=== PATIENT | female | born 1950 | race Caucasian/White ===

== ENCOUNTER 2017-08-26 12:52 | Emergency (ER) | payer MEDICARE, OTHER ==
[2017-08-26 13:04] VITALS: BP 129/74
--- NOTE | 2017-08-26 13:10 | EDM.PDOC ---
ED HPI GENERAL MEDICAL PROBLEM - General Chief Complaint: Genitourinary Problem Stated Complaint: bladder infection Time Seen by Provider: 08/26/17 12:55 Source of Information: Reports: Patient History Limitations: Reports: No Limitations - History of Present Illness INITIAL COMMENTS - FREE TEXT/NARRATIVE: This patient is a 66 year old female that presents to the ER. Patient reports that since Sunday having burning with urination. Patient reports having lower bilateral back pain. Patient reports having nausea. She believes she has a UTI, as she reports she has had them before. Patient denies ricci, dizziness, v, d, f, cp, soa, abd pain, bowel changes, rash. Patient alert and oriented. I have ordered labs and urine. Onset Date: 08/24/17 Duration: Day(s): (2) Location: Reports: Back Quality: Reports: Ache Severity: Mild Improves with: Reports: None Worsens with: Reports: None Associated Symptoms: Reports: Nausea/Vomiting. Denies: Confusion, Chest Pain, Cough, cough w sputum, Diaphoresis, Fever/Chills, Headaches, Loss of Appetite, Malaise, Rash, Seizure, Shortness of Breath, Syncope, Weakness Pelvic Pain Score (Numeric/FACES): 6 - Related Data Allergies Allergy/AdvReac Type Severity Reaction Status Date / Time Penicillins Allergy Rash Verified 08/26/17 13:04 Home Meds: Home Meds Amitriptyline [Elavil] 50 mg PO BEDTIME 10/17/14 [History] Aspirin [Low Dose Aspirin EC] 81 mg PO DAILY 10/17/14 [History] Citalopram [Celexa] 40 mg PO DAILY 10/17/14 [History] Cholecalciferol (Vitamin D3) [Vitamin D3] 1,000 unit PO DAILY 03/24/16 [History] Multivitamin [Multivitamins] 1 tab PO DAILY 03/24/16 [History] Omeprazole 20 mg PO DAILY 03/24/16 [History] metFORMIN [Glucophage XR] 1,000 tab PO DAILY 03/24/16 [History] Simvastatin [Zocor] 20 mg PO BEDTIME 03/30/16 [History] Past Medical History HEENT History: Reports: None Cardiovascular History: Reports: High Cholesterol, Hypertension Respiratory History: Reports: None Gastrointestinal History: Reports: Diverticulosis, GERD, Hiatal Hernia, Other ( See Below) Other Gastrointestinal History: LACTOSE INTOLERANCE Genitourinary History: Reports: Renal Calculus, UTI, Recurrent MAGNETIZER History: Reports: None Musculoskeletal History: Reports: Arthritis, Osteoarthritis, Other (See Below) Other Musculoskeletal History: degenerative joint disease Neurological History: Reports: None Psychiatric History: Reports: Depression, Panic Attack Endocrine/Metabolic History: Reports: Diabetes, Type II Hematologic History: Reports: None Immunologic History: Reports: None Other Oncologic History: melanoma Dermatologic History: Reports: None - Infectious Disease History Infectious Disease History: Reports: Chicken Pox, Measles, Mumps, TB - Past Surgical History Musculoskeletal Surgical History: Reports: Knee Replacement Social & Family History - Family History Family Medical History: Noncontributory HEENT: Reports: None Cardiac: Reports: Other (See Below) Other Cardiac Family History: unknown type of heart disease Respiratory: Reports: None GI: Reports: None : Reports: Dialysis OBGYN: Reports: Other (See Below) Other OBGYN Family History: difficulty with delivery Musculoskeletal: Reports: Arthritis Neurological: Reports: CVA Psychiatric: Reports: None Endocrine/Metabolic: Reports: Diabetes, Type I Hematologic: Reports: None Immunologic: Reports: None Dermatologic: Reports: None Oncologic: Reports: Colon - Tobacco Use Smoking Status *Q: Current Every Day Smoker Years of Tobacco use: 30 Packs/Tins Daily: 0.5 Second Hand Smoke Exposure: Yes - Caffeine Use Caffeine Use: Reports: Coffee - Recreational Drug Use Recreational Drug Use: No ED ROS GENERAL - Review of Systems Review Of Systems: See Below Constitutional: Reports: No Symptoms HEENT: Reports: No Symptoms Respiratory: Reports: No Symptoms Cardiovascular: Reports: No Symptoms Endocrine: Reports: No Symptoms GI/Abdominal: Reports: Nausea. Denies: Abdominal Pain, Vomiting : Reports: Dysuria, Flank Pain Musculoskeletal: Reports: No Symptoms Skin: Reports: No Symptoms Neurological: Reports: No Symptoms Psychiatric: Reports: No Symptoms Hematologic/Lymphatic: Reports: No Symptoms Immunologic: Reports: No Symptoms ED EXAM, GI/ABD - Physical Exam Exam: See Below Exam Limited By: No Limitations General Appearance: Alert, WD/WN, No Apparent Distress Eyes: Bilateral: Normal Appearance Ears: Normal External Exam, Normal Canal, Hearing Grossly Normal, Normal TMs Nose: Normal Inspection, Normal Mucosa, No Blood Throat/Mouth: Normal Inspection, Normal Lips, Normal Teeth, Normal Gums, Normal Oropharynx, Normal Voice, No Airway Compromise Head: Atraumatic, Normocephalic Neck: Normal Inspection, Supple, Non-Tender, Full Range of Motion Respiratory/Chest: No Respiratory Distress, Lungs Clear, Normal Breath Sounds, No Accessory Muscle Use Cardiovascular: Normal Peripheral Pulses, No Edema, No Gallop, No JVD, No Murmur , No Rub, Tachycardia (104 on exam) GI/Abdominal Exam: Normal Bowel Sounds, Soft, Non-Tender, No Organomegaly, No Distention, No Abnormal Bruit, No Mass, Pelvis Stable (Female) Exam: Deferred Rectal (Female) Exam: Deferred Back Exam: Normal Inspection, Full Range of Motion, CVA Tenderness (L), CVA Tenderness (R) Extremities: Normal Inspection, Normal Range of Motion, Non-Tender, No Pedal Edema, Normal Capillary Refill Neurological: Alert, Oriented, Normal Cognition, Normal Gait Psychiatric: Normal Affect, Normal Mood Skin Exam: Warm, Dry, Intact, Normal Color, No Rash Lymphatic: No Adenopathy Course - Vital Signs Last Recorded V/S: Last Vital Signs Temp 97.4 F 08/26/17 12:58 Pulse 109 H 08/26/17 12:58 Resp 20 08/26/17 12:58 BP 129/74 08/26/17 12:58 Pulse Ox 97 08/26/17 12:58 - Orders/Labs/Meds Orders: Active Orders 24 hr Category Date Time Status Abdomen Pelvis wo Cont [CT] Stat Exams 08/26/17 13:32 Taken CULTURE URINE [RM] Routine Lab 08/26/17 12:59 Received Labs: Laboratory Tests 08/26/17 08/26/17 08/26/17 Range/Units 12:54 13:04 13:04 WBC 16.7 H (5.0-10.0) 10^3/uL RBC 4.28 (4.00-5.50) 10^6/uL Hgb 13.3 (12.0-16.0) g/dL Hct 39.3 (37.0-47.0) % MCV 91.8 (82.0-94.0) fL MCH 31.1 (27.0-32.0) pg MCHC 33.8 (33.0-38.0) g/dL RDW Coeff of Cely 13.1 (11.0-15.0) % Plt Count 291 (150-400) 10^3/uL Neut % (Auto) 76.5 (35-85) % Lymph % (Auto) 18.6 (10-55) % [place] % (Auto) 3.7 (0-16) % Eos % (Auto) 1.0 (0-5) % Baso % (Auto) 0.2 (0-3) % Neut # (Auto) 12.76 H (1.80-7.00) 10^3/uL Lymph # (Auto) 3.11 (1.00-4.80) 10^3/uL [place] # (Auto) 0.62 (0.00-0.80) 10^3/uL Eos # (Auto) 0.17 (0.00-0.45) 10^3/uL Baso # (Auto) 0.03 10^3/uL Sodium 140 (136-145) mEq/L Potassium 3.7 (3.5-5.0) mEq/L Chloride 101 (98-106) mEq/L Carbon Dioxide 26 (21-32) mmol/L BUN 11 (7-18) mg/dL Creatinine 0.9 (0.6-1.0) mg/dL Est Cr Clr Drug Dosing 48.63 mL/min Estimated GFR (MDRD) > 60 (>=60) mL/min Glucose 312 H* D (75-99) mg/dL Calcium 8.9 (8.4-10.1) mg/dL Total Bilirubin 0.4 (0.0-1.0) mg/dL AST 16 (15-37) U/L ALT 29 (12-78) U/L Alkaline Phosphatase 98 (46-116) U/L Total Protein 7.4 (6.4-8.2) g/dL Albumin 3.8 (3.4-5.0) g/dL Urine Color Yellow (YELLOW) Urine Appearance Cloudy (CLEAR) Urine pH 7.0 (4.5-8.0) Ur Specific [place] 1.020 (1.003-1.020) Urine Protein 30 H (NEGATIVE) mg/dL Urine Glucose (UA) Negative (NEGATIVE) mg/dL Urine Ketones Negative (NEGATIVE) mg/dL Urine Occult Blood Moderate H (NEGATIVE) Urine Nitrite Negative (NEGATIVE) Urine Bilirubin Negative (NEGATIVE) Urine Urobilinogen 1.0 (0.2-1.0) EU/dL Ur Leukocyte Esterase Large H (NEGATIVE) Urine RBC 50-75 H (0-5) /HPF Urine WBC 50-75 H (0-5) /HPF Ur Squamous Epith Cells Occasional H (NOT SEEN) /HPF Urine Bacteria Occasional H (NOT SEEN) /HPF Meds: Medications Discontinued Medications Generic Name Dose Route Start Last Admin Trade Name Yash PRN Reason Stop Dose Admin Ceftriaxone Sodium 2 gm 08/26/17 13:31 08/26/17 13:48 Rocephin IVPUSH 08/26/17 13:32 2 gm ONETIME ONE Administration Sodium Chloride 1,000 mls @ 1,000 mls/hr 08/26/17 13:31 08/26/17 13:48 Normal Saline IV 08/26/17 14:30 1,000 mls/hr .BOLUS ONE Administration Ketorolac Tromethamine 30 mg 08/26/17 14:01 Toradol IVPUSH 08/26/17 14:02 ONETIME ONE Morphine Sulfate 4 mg 08/26/17 13:35 08/26/17 13:47 Morphine IVPUSH 08/26/17 13:36 4 mg ONETIME ONE Administration Ondansetron HCl 4 mg 08/26/17 13:35 08/26/17 13:47 Zofran IVPUSH 08/26/17 13:36 4 mg NOW STA Administration - Radiology Interpretation Free Text/Narrative:: CT: Abd/Pelvis Without: discussed with radiologist; No acute findings. No renal stones, ureters normal, kidneys normal, organs normal. CT Results Date: 08/26/17 CT Results Time: 14:45 Departure - Departure Time of Disposition: 14:49 Disposition: Home, Self-Care 01 Condition: Good Clinical Impression: UTI, Urinary tract infectious disease - Discharge Information Instructions: Urinary Tract Infection, Adult Forms: ED Department Discharge Additional Instructions: Followup with your primary care provider Return to the ER for worsening of condition or any emergent concerns Increase fluids Bactrim DS 1 pill twice a day for 7 days #14 no refill - My Orders Last 24 Hours: My Active Orders 08/26/17 12:59 CULTURE URINE [RM] Routine 08/26/17 13:32 Abdomen Pelvis wo Cont [CT] Stat - Assessment/Plan Last 24 Hours: My Active Orders 08/26/17 12:59 CULTURE URINE [RM] Routine 08/26/17 13:32 Abdomen Pelvis wo Cont [CT] Stat Plan: PLEASE SEE RN NOTE FOR PFSH.
[2017-08-26 13:26] LABS: CHLORIDE,CL 101 mEq/L (98-106); SODIUM,NA 140 mEq/L (136-145)
[2017-08-26] MEDS ORDERED: cefTRIAXone 2 GM Vial IVPUSH ONE (13:31)
[2017-08-26] MEDS ORDERED: Sodium Chloride 0.9% 1,000 ML IV ONE (13:31)
[2017-08-26] MEDS ORDERED: Ondansetron 4 MG/2 ML SDV IVPUSH STA (13:35)
[2017-08-26] MEDS ORDERED: Morphine 4 MG/ML Syringe IVPUSH ONE (13:35)
[2017-08-26] MEDS ORDERED: Ketorolac 30 MG/ML SDV IVPUSH ONE (14:01)
== END 2017-08-26 15:00 | disposition home or self-care (01) ==
LOC: CC.ED 12:52
DX: N39.0 Urinary tract infection, site not specified (principal); I10 Essential (primary) hypertension; E78.00 Pure hypercholesterolemia, unspecified; F17.210 Nicotine dependence, cigarettes, uncomplicated; Z88.0 Allergy status to penicillin; Z79.82 Long term (current) use of aspirin; Z79.84 Long term (current) use of oral hypoglycemic drugs
CPT/HCPCS: 36415; 74176; 80053; 81001; 85025; 87086; 87088; 87186; 96360; 96361; 96374; 96375; 99284; J0696; J2270; J2405; J7030

== ENCOUNTER → 2019-04-10 | Day surgery (SDC) | payer MEDICARE, OTHER ==
[~2019-04-10] MED LIST: Acetaminophen/oxyCODONE 325-5 MG Tab PO ONE; Ketorolac 30 MG/ML SDV IVPUSH ONE; Lactated Ringers 1,000 ML IV SCH; Midazolam 1 MG/ML 2 ML SDV IV ONE; Propofol 200 MG/20 ML SDV IV ONE; fentaNYL 100 MCG/2 ML SDV IV ONE
[2019-04-10 09:35] VITALS: PULSE 76
[2019-04-10 10:04] VITALS: BP 134/67
--- NOTE | 2019-04-10 14:52 | OR ---
DATE OF OPERATION: 04/10/2019 PREOPERATIVE DIAGNOSIS: RIGHT CARPAL TUNNEL SYNDROME. POSTOPERATIVE DIAGNOSIS: RIGHT CARPAL TUNNEL SYNDROME. SURGEON: Johnathan Marie MD PROCEDURE: RELEASE, RIGHT CARPAL TUNNEL SYNDROME. ANESTHESIA: Drew block. SPECIMEN: None. INDICATIONS: This 68-year-old female has significant right carpal tunnel syndrome symptoms. She has an EMG that shows a severe right median nerve entrapment. DESCRIPTION OF PROCEDURE: After adequate preparation, a longitudinal incision was made over the skin crease at the right wrist. This was carried down through the subcutaneous tissue to the transverse carpal ligament. This was sharply incised and then a hemostat was placed underneath the ligament. The rest of the ligament was then sharply incised in total all the way distal down into the palm of the hand. This seemed to adequately open up the space. No abnormalities were noted and the skin was closed with interrupted 2-0 nylon sutures which will stay in for 2 weeks. DILLON/JR /[id number]
== END ==
LOC: CC.SDS 06:56
PROVIDERS: ATTEND Surgery
DX: G56.01 Carpal tunnel syndrome, right upper limb (principal); I10 Essential (primary) hypertension; E11.40 Type 2 diabetes mellitus with diabetic neuropathy, unspecified; E78.5 Hyperlipidemia, unspecified; K21.9 Gastro-esophageal reflux disease without esophagitis; F41.9 Anxiety disorder, unspecified; F32.9 Major depressive disorder, single episode, unspecified; F17.210 Nicotine dependence, cigarettes, uncomplicated; M81.0 Age-related osteoporosis without current pathological fracture; Z88.0 Allergy status to penicillin; Z88.5 Allergy status to narcotic agent; Z88.6 Allergy status to analgesic agent; Z79.82 Long term (current) use of aspirin; Z79.84 Long term (current) use of oral hypoglycemic drugs; Z79.899 Other long term (current) drug therapy
CPT/HCPCS: 64721; A9270; J7120

== ENCOUNTER 2022-10-07 18:18 | Emergency (ER) | payer MEDICARE, OTHER ==
[2022-10-07 18:34] VITALS: BP 167/72; PULSE 95
[2022-10-07] MEDS: Acetaminophen 325 MG Tab PO ONE (19:18)
[2022-10-07 19:26] LABS: CORONAVIRUS COVID-19 NAA NEGATIVE (NEGATIVE); RESPIRATORY SYNCYTIAL VIR NAA NEGATIVE (NEGATIVE)
[2022-10-07] MEDS: Take Home: Cefuroxime 250 MG Tab, 2 Tab Pack PO ONE (20:15)
== END 2022-10-07 20:20 | disposition home or self-care (01) ==
LOC: CC.ED 18:18
DX: H65.192 Other acute nonsuppurative otitis media, left ear (principal); E78.00 Pure hypercholesterolemia, unspecified; I10 Essential (primary) hypertension; K21.9 Gastro-esophageal reflux disease without esophagitis; M19.90 Unspecified osteoarthritis, unspecified site; E11.9 Type 2 diabetes mellitus without complications; F17.210 Nicotine dependence, cigarettes, uncomplicated; Z88.1 Allergy status to other antibiotic agents; Z88.0 Allergy status to penicillin; Z88.5 Allergy status to narcotic agent; Z79.82 Long term (current) use of aspirin; Z79.899 Other long term (current) drug therapy; Z79.84 Long term (current) use of oral hypoglycemic drugs; Z20.822 Contact with and (suspected) exposure to COVID-19
CPT/HCPCS: 0241U; 87070; 87430; 99283; A9270